=== PATIENT | male | born 1995 | race Caucasian/White ===

== ENCOUNTER 2022-04-12 14:04 | Emergency (ER) | payer OTHER, SELFPAY ==
--- NOTE | ~2022-04-12 | XR_ITS ---
EXAMINATION: XR facial bones min 3V INDICATION: Right facial pain TECHNIQUE: Three views of the facial bones are obtained on four radiographs COMPARISON: None available FINDINGS: No facial fracture is identified. The paranasal sinuses appear to be normally pneumatized a nd well aerated. The visualized portions of the cervical spine are unremarkable. IMPRESSION: 1. No definite evidence of facial fracture although sensitivity of radiographs is moderate. If there is high clinical suspicion for facial fracture, further evaluation with facial bone CT is recommended . Reviewed, dictated and finalized at location F. IMPRESSION: 1. No definite evidence of facial fracture although sensitivity of radiographs is moderate. If there is high clinical suspicion for facial fracture, further e valuation with facial bone CT is recommended.
[2022-04-12 14:13] VITALS: BP 155/95; PULSE 71; RESP 16; TEMP 36.2; O2SAT 100
[2022-04-12 14:16] VITALS: BP 155/95; PULSE 71; RESP 16; TEMP 36.2; O2SAT 100
--- NOTE | 2022-04-12 14:50 | ED.WOUNDLAC ---
HPI - Wound/Laceration General Chief Complaint: Wound/Laceration Stated Complaint: FACIAL INJURY Time Seen by Provider: 04/12/22 14:30 Source: patient, RN notes reviewed and old records reviewed Mode of arrival: ambulatory Limitations: no limitations History of Present Illness HPI narrative: 26 year old male presents to express care with complaints of injury at work today when air hammer bounce and hit patient on right side of face below safety glasses causing some bruising and swelling with a small laceration to area laterally under right eye.Patient has bruising under right eye and also some abrasions under right eye, with the small laceration laterally with no drainage noted. Patient denies any vision changes with visual acuity left 20/20 right 20/13 with no corrective lens. Patient denies any pain to eye itself. Onset (ago): minute(s) (shortly before arrival to clinic) Location: face Treatments prior to arrival: cold therapy Related Data Allergies Allergy/AdvReac Type Severity Reaction Status Date / Time No Known Allergies Allergy Verified 09/01/21 11:45 Review of Systems Review of Systems: CONSTITUTIONAL: Denies fever, chills, or sweats. EYES: Denies visual changes, redness, or discharge.bruising with abrasions under right eye and small laceration lateral region under right eye. ENT: Denies rhinorrhea, congestion, sore throat, or otalgia. CARDIOVASCULAR: Denies chest pain, palpitations, or edema. RESPIRATORY: Denies cough or dyspnea. GASTROINTESTINAL: Denies abdominal pain, nausea, vomiting, or diarrhea. GENITOURINARY: Denies dysuria or hematuria. SKIN: Denies rash or itching. MUSCULOSKELETAL: Denies back pain, joint pain, or myalgia. NEUROLOGIC: Denies headache, numbness, or weakness. PSYCHIATRIC: Denies anxiety or depression. [facility] Surgical History Surgical History (Updated 04/12/22 @ 15:38 by Jolene Shepard NP) Hx of LASIK Family History Family History Grandparent Hypertension Other Family history of malignant neoplasm of male breast Social History Social History (Updated 04/12/22 @ 15:37 by Jolene Shepard NP) Smoking status: Never smoker Alcohol intake: never Substance use type: does not use Gender identity (if verbalized by the patient): Male Comments At time of signature, agree with nursing past medical, surgical, social and family history. There is no relevant family history pertinent to the presenting complaint Exam Narrative: GENERAL: Well-appearing, well-nourished, and in no acute distress. HEAD: Normocephalic, atraumatic. EYES: PERRLA and EOMI. some swelling and bruising under right eye with a small superficial laceration lateral area and abrasion under eye ENT: Nares clear, no rhinorrhea or epistaxis. Mucous membranes moist.TM's normal with good light reflex, throat pink with no lesions or exudates no tonsil enlargement. NECK: Supple.no lymphadenopathy CHEST: Clear to auscultation. No respiratory distress.SAO2 100% on room air HEART: Regular rate and rhythm. No murmur heard. Normal peripheral pulses. ABDOMEN: Soft, nontender, nondistended, normal active bowel sounds. EXTREMITIES: Normal range of motion. No edema. SKIN: Warm, dry, no rash. abrasions bruising with small superficial laceration under right eye. NEURO: No focal deficits. Alert and oriented x3. Course Course Level of Care: Express Care Visit Vital Signs Vital signs: Vital Signs Temperature 36.2 C L 04/12/22 14:13 Pulse Rate 71 04/12/22 14:13 Respiratory Rate 16 04/12/22 14:13 Blood Pressure 155/95 H 04/12/22 14:13 Pulse Oximetry 100 04/12/22 14:13 Temperature 36.2 C L 04/12/22 14:16 Pulse Rate 71 04/12/22 14:16 Respiratory Rate 16 04/12/22 14:16 Blood Pressure 155/95 H 04/12/22 14:16 Pulse Oximetry 100 04/12/22 14:16 MDM - Wound/Laceration Differential Diagnosis Differential diagnosis: Likely laceration, abrasion
== END 2022-04-12 15:20 | disposition home or self-care (01) ==
PROVIDERS: Emergency Provider Registered Nurse
DX: S00.83XA Contusion of other part of head, initial encounter (principal); W29.8XXA Contact with other powered hand tools and household machinery, initial encounter; Y99.0 Civilian activity done for income or pay
CPT/HCPCS: 70150; 99213; G0463